=== PATIENT | female | born 1970 | race Caucasian/White ===

== ENCOUNTER 2017-01-30 04:13 | Inpatient (IN) | payer OTHER ==
[~2017-01-30] VITALS: Ht 165.1 cm; Wt 55.8 kg
[~2017-01-30 04:13] MED LIST: BACTRIM DS 8001 TAB PO; EC NAPROSYN500 MG PO; IBUPROFEN600 M1 PO; PERCOCET 5-3251 EACH PO; PROAIR HFA0.09 MG/Ac INH; TRIAMCINOL0.1 %/453 TOP; TYLENOL #31 TAB PO
--- NOTE | 2017-01-30 04:32 | NUR ---
PER PT JOINTS PAINFUL AND WHOLE BODY PAIN, PT REPORTS HX OF BLOOD INFECTION IN APR 2016, HAD PICC LINE BUT TOOK IT OUT EARLY
--- NOTE | 2017-01-30 04:49 | NUR ---
AT BEDSIDE FOR PT EVALUATION
--- NOTE | 2017-01-30 05:16 | NUR ---
IV EST #20 IN RAC. BLOOD OBTAINED AND SENT TO LAB -[facility], 1ST SET OF CX. PT MEDICATED WITH 1MG DILAUDID AND NS INFUSING PER EMAR
[2017-01-30 05:18] LABS: ABSOLUTE BASOPHIL COUNT 0 /CUMM (0.0-0.2); ABSOLUTE EOSINOPHIL COUNT 0.2 /CUMM (0.0-0.7); ABSOLUTE GRANULOCYTE CT 9.4 /CUMM (1.4-6.5); ABSOLUTE LYMPH COUNT 1.6 /CUMM (1.2-3.4); ABSOLUTE MONOCYTE COUNT 0.5 /CUMM (0.10-0.60); BASOPHIL % 0.2 % (0.0-2.0); EOSINOPHIL % 1.5 % (0-5); GRANULOCYTE % 80.3 % (42.2-75.2); HEMATOCRIT 40.2 % (37-47); MEAN CORPUSCULAR HGB 27.8 PG (27.0-31.0); MEAN CORPUSCULAR HGB CONC 32.7 G/DL (33.0-37.0); MEAN PLATELET VOLUME 7.4 FL (7.4-10.4); PLATELET COUNT 355 /CUMM (130-400); RBC DISTRIBUTION WIDTH 13.9 % (11.5-14.5); RED BLOOD CELL CT 4.73 /CUMM (4.20-5.40); WHITE BLOOD CELL COUNT 11.8 /CUMM (4.8-10.8)
--- NOTE | 2017-01-30 05:25 | NUR ---
SECOND SET OF CX OBTAINED BY [facility]
--- NOTE | 2017-01-30 05:50 | NUR ---
PT MEDICATED WITH 30MG TORADOL PER EMAR
--- NOTE | 2017-01-30 06:01 | ED GENERAL ADULT ---
See Addendum History of Present Illness General Chief Complaint: General Adult Stated Complaint: "WHOLE BODY PAIN I HAVE ULCERS ALLOVER" HX OF SAME Source: patient, family, old records Exam Limitations: no limitations Vital Signs & Intake/Output Vital Signs & Intake/Output Vital Signs Date Time Temp Pulse Resp B/P B/P Pulse O2 O2 Flow FiO2 Mean Ox Delivery Rate 01/30 0433 96.5 72 22 180/108 98 Room Air Allergies Coded Allergies: aspirin (Intermediate, SWELLING 05/26/16) Reconcile Medications Albuterol Sulfate (Proair Hfa) 0.09 MG/Actuation PRESLEY 1 PUFF INH 4 TIMES/DAY PRN DYSPNEA Ibuprofen 600 MG TABLET 1 TAB PO Q6PRN PRN pain with food Naproxen (EC-Naprosyn) 500 MG TABLET.DR 1 TAB PO BID PRN PAIN (Reported) Oxycodone HCl/Acetaminophen (Percocet 5-325 MG Tablet) 1 EACH TABLET 1-2 TAB PO Q6-PRN PRN severe pain Sulfamethoxazole/Trimethopri (Bactrim Ds 800 MG-160 MG) 1 TAB TAB 1 TAB PO BID CELLULITIS Triage Note: PER PT JOINTS PAINFUL AND WHOLE BODY PAIN, PT REPORTS HX OF BLOOD INFECTION IN APR 2016, HAD PICC LINE BUT TOOK IT OUT EARLY Triage Nurses Notes Reviewed? yes Onset: Last week Duration: week(s):, constant, continues in ED, getting worse Timing: recent history Severity: severe Modifying Factors: Improves With: immobilization. Worsens With: movement. LMP (ages 10-50): unknown : No Patient currently breastfeeds: No HPI: Patient complains of painful generalized skin ulcers joint pain myalgia with a history of pyoderma gangrenosa. She reports the worst pain is at the right knee and left elbow bilateral medial malleoli. These issues have been going on for over a year. She has been admitted to [facility] and seen at surgery, dermatology, internal medicine clinics at [facility]. She denies fever chills chest pain cough shortness of breath headache dysuria rash bleeding . Past History Travel History Traveled to [place] past 21 day No Medical History Any Pertinent Medical History? 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 No Review of Systems Review of Systems Constitutional: Reports: see HPI, malaise. EENTM: Reports: no symptoms. Respiratory: Reports: no symptoms. Cardiovascular: Reports: no symptoms. GI: Reports: no symptoms. Genitourinary: Reports: no symptoms. Musculoskeletal: Reports: see HPI, joint pain, joint swelling, muscle pain. Skin: Reports: see HPI, lesions. Neurological/Psychological: Reports: no symptoms. Hematologic/Endocrine: Reports: no symptoms. Immunologic/Allergic: Reports: no symptoms. All Other Systems: Reviewed and Negative Physical Exam Physical Exam General Appearance: well developed/nourished, alert, awake, anxious, severe distress Head: atraumatic, normal appearance Eyes: Bilateral: normal appearance, PERRL, EOMI. Ears, Nose, Throat: normal pharynx, normal ENT inspection Neck: normal inspection, supple, full range of motion, no midline tenderness Respiratory: normal breath sounds, chest non-tender, no respiratory distress, quiet respiration, lungs clear Cardiovascular: regular rate/rhythm, normal peripheral pulses, norml femoral pulses equa Peripheral Pulses: 4+ carotid (R), 4+ carotid (L) Gastrointestinal: normal bowel sounds, soft, non-tender, no organomegaly Back: normal inspection, normal range of motion Extremities: normal capillary refill, limited range of motion, swelling (right knee, left elbow) Neurologic/Psych: no motor/sensory deficits, awake, alert, oriented x 3, 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 Skin: rash, generalized bullae, papules tender to touch left medial malleolus with necrotic looking 3 cm2 lesion Lymphatic: no anterior cervical luis Core Measures ACS in differential dx? No CVA/TIA Diagnosis: No Severe Sepsis Present: No Septic Shock Present: No Progress Differential Diagnoses I considered the following diagnoses in my evaluation of the patient: cellulitis pyoderma gangrenosum bacteremia Plan of Care: Orders Procedure Date/time Status LACTIC ACID 01/30 0753 Active C-REACTIVE PROTEIN 01/30 0508 Complete BLOOD CULTURE 01/30 453 Active LACTIC ACID 06/18 0453 Complete HIGH SENSITIVITY CRP 01/30 453 Complete WESTERGREN SED RATE 01/30 453 Active COMPREHENSIVE METABOLIC PANEL 01/30 453 Complete CBC WITHOUT DIFFERENTIAL 01/30 453 Active Current Medications Sig/Diomedes Start time Last Medication Dose Stop Time Status Admin Doxycycline Hyclate 100 MG ONCE ONE 01/30 0700 AC (Vibramycin) 01/30 0805 Sodium Chloride 100 ML (Normal Saline 0.9%) Laboratory Tests 01/30/17 0508: Anion Gap 12, Estimated GFR > 60, BUN/Creatinine Ratio 17.1, Glucose 105 H, Lactic Acid 1.2, Calcium 9.5, Total Bilirubin 0.4, AST 24, ALT 34, Alkaline Phosphatase 135 H, C-Reactive Prot, Quant 2.5 H, C-React Prot High Sens > 15.0 H, Total Protein 7.6, Albumin 4.2, Globulin 3.4, Albumin/Globulin Ratio 1.2, CBC w Diff NO MAN DIFF REQ, RBC 4.73, MCV 85.0, MCH 27.8, RDW 13.9, MPV 7.4, Gran % 80.3 H, Lymphocytes % 13.7 L, Monocytes % 4.3, Eosinophils % 1.5, Basophils % 0.2, Absolute Granulocytes 9.4 H, Absolute Lymphocytes 1.6, Absolute Monocytes 0.5, Absolute Eosinophils 0.2, Absolute Basophils 0, PUBS MCHC 32.7 L, ESR Westergren Pending Microbiology 01/30 05 BLOOD: Blood Culture - RECD 01/31 508 BLOOD: Blood Culture - RECD Initial ED EKG: none Hand-Off Endorsed To: AARON ROJAS,NONI Burkett Endorsed Time: 703 Pending: other (ESR, pain level) Departure Departure Disposition: STILL A PATIENT Condition: Stable Clinical Impression Primary Impression: Pyoderma gangrenosum Referrals: PATIENT HAS NO PRIMARY CARE DR (PCP/Family) Departure Forms: Customer Survey General Discharge Information Critical Care Note Critical Care Note Critical Care Time: non-applicable
--- NOTE | 2017-01-30 06:46 | NUR ---
PER PT PAIN IS SITLL PRESENT HOWEVER "TOLERABLE". PT REQUESTING BLANKET, GIVEN AND LIGHTS DIMMED FOR COMFORT.
--- NOTE | 2017-01-30 06:48 | NUR ---
AT BEDSIDE FOR DISCUSSION ON PT POC
--- NOTE | 2017-01-30 07:51 | NUR ---
ASSUMED CARE OF PT AT THIS TIME PT AWAKE, ALERT AND CONVERSTANT WITHOUT COMPLAINTS PT HAS OPEN WOUND TO L ANKLE WITH SURROUNDING REDNESS. PT STATES SHE GETS "ULCERS" AND "THAT ONE JUST GOT AWAY FROM ME". ALL EXPOSED SKIN NOTED TO HAVE SMALL OPEN AREAS WITH BAND AIDS. PT REPORTS RECENT PICC LINE WITH IV ANTIBIOTICS (APR). ATTEMPTED TO MEDICATE PT THROUGH EXISTING IV AND NOTED SMALL AREA OF PUFFINESS ABOVE SITE. PT DENIES PAIN. IV D/ADAM. NEW IV PLACED TO LAC. MEDICATED WITH SOLUMEDROL, DILAUDID, ZOFRAN PER OCT. DOXYCYCLINE INFUSING PER OCT. TOAST ORDERED PER REQUEST
--- NOTE | 2017-01-30 08:27 | NUR ---
TOAST AND JUICE GIVEN PER PT REQUEST OK WITH MD WALKER
--- NOTE | 2017-01-30 08:47 | NUR ---
DOXYCYCLINE COMPLETED PT TOLERATED TOAST AND JUICE DR WALKER WILL BE INTO DISCUSS RESULTS/POC. PT INFORMED OF AND AGREEABLE TO SAME
--- NOTE | 2017-01-30 10:26 | NUR ---
INFORMED WAITING PROVIDED RE MD WALKER REVIEWING POC WITH PT
--- NOTE | 2017-01-30 10:37 | NUR ---
TAKEN TO RADIOLOGY VIA STRETCHER
--- NOTE | 2017-01-30 10:59 | RADIOLOGY REPORT ---
EXAMINATION: XR FOOT, LEFT CLINICAL INFORMATION: Soft tissue wound left foot. Concern for osteomyelitis. COMPARISON: None TECHNIQUE: AP, lateral, and oblique views of the left foot. FINDINGS: A large soft tissue defect is noted over the dorsal and medial aspect of the left foot. No underlying bony changes are seen to suggest osteomyelitis. No other abnormality. IMPRESSION: Large soft tissue wound. No bony abnormality.
--- NOTE | 2017-01-30 11:46 | NUR ---
DR WALKER AND CASE MANAGEMENT AT THE BEDSIDE
--- NOTE | 2017-01-30 12:04 | NUR ---
C/O INCREASED PAIN. MED WITH ADDITIONAL DILAUDID PER OCT. TOLERATED WELL. PT AWARE SHE IS WAITING ON DISPOSITION TODAY. DENIES NEEDING ANYTHING AT THIS TIME LUNCH ORDERED - OK WITH MD WALKER
--- NOTE | 2017-01-30 13:06 | NUR ---
PT REMAINS WITHOUT COMPLAINTS. DENIES CURRENT NEEDS AWAITING CASE MANAGEMENT / DISPOSITION - POSSIBLE ADMISSION FOR IV ANTIBIOTICS.
--- NOTE | 2017-01-30 13:12 | NUR ---
CASE MANAGEMENT AT THE BEDSIDE
--- NOTE | 2017-01-30 14:26 | NUR ---
HOUSE STAFF INTO EVAL
--- NOTE | 2017-01-30 14:40 | NUR ---
PT CONTINUES TO OFFER NO COMPLAINTS. HOUSE STAFF REMAINS AT BEDSIDE FOR EVAL AWAITING ADMISSION/TRANSFER UPSTAIRS
--- NOTE | 2017-01-30 14:41 | NUR ---
[facility] [id number]
--- NOTE | 2017-01-30 14:50 | History & Physical ---
ALEIDA ROJAS,[facility] 01/30/17 3380: General Information and HPI MD Statement: I have seen and personally examined NURY LLAMAS and documented this H&P. The patient is a 46 year old F who presented with a patient stated chief complaint of [skin wound/ulcer]. Source of Information: patient Exam Limitations: no limitations History of Present Illness: Ms. Llamas is 46 year old female current smoker. Patient presented to ED with chief complaint of skin wounds/ulcers. She reported that last week started to have small wounds in her bilateral feet that ulcerated, multiple wounds in her upper extremity, small aphthous ulcer at the left tongue tip, no other mucous membrane lesions including genital area. Patient reported history of similar skin disorder that was diagnosed in 2014 at [facility] and was started on steroids. Last April patient had some sort of bacteremia for which she received antibiotic through PICC line. Patient denied any fever, chills. Denied any skin color changes, abdominal pain , nausea vomiting, change in color of urine or stool. Denied any muscle pain or joint pain however reported left elbow cyst. Patient denied any chest pain, cough, shortness of breath, headache. 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 Exam & Diagnostic Data Last 24 Hrs of Vital Signs/I&O Vital Signs Date Time Temp Pulse Resp B/P B/P Pulse O2 O2 Flow FiO2 Mean Ox Delivery Rate 01/30 1440 97.4 74 18 169/81 97 Room Air 01/30 1306 96.3 89 18 173/95 94 Room Air 01/30 1034 96.6 69 18 169/94 96 Room Air 01/30 0433 96.5 72 22 180/108 98 Room Air Intake & Output 01/30 1600 01/30 0800 01/30 0000 Intake Total 100 1000 Output Total Balance 100 1000 Intake, IV 100 1000 Physical Exam General Appearance Alert, Oriented X3, Cooperative, No Acute Distress Skin multiple open wounds on bilateral upper extremities 2 ulcers 5 x 5 cm on the medial surface of bilateral feet multiple small open wounds on bilateral lower extremity small open wound preumbilical Skin Temp/Moisture Exam: Warm/Dry HEENT Atraumatic, PERRLA, EOMI, Mucous Membr. moist/pink, aphthous ulcer on the left edge of the tongue Neck Supple, No JVD Lymphatic no cervical or axillary lymphadenopathy Cardiovascular Regular Rate, Normal S1, Normal S2, No Murmurs Lungs Clear to Auscultation, Normal Air Movement Abdomen Normal Bowel Sounds, Soft, No Tenderness, No Hepatospenomegaly, No Masses Neurological Normal Gait, Normal Speech, Strength at 5/5 X4 Ext, Normal Tone, Sensation Intact, Cranial Nerves 3-12 NL, Reflexes 2+ Extremities No Clubbing, No Cyanosis, No Edema, Normal Pulses, No Tenderness/ Swelling Assessment/Plan Assessment: Ms. Llamas is 46 year old female post medical history significant for septic arthritis who presented with history of pyoderma gangrenosu. On admission Vital signs 96.5, pulse 22, heart rate 98, blood pressure 180/108 wbc 11.8, H&H 13.1/40.2, platelet 355 Sodium 142, potassium 3.7, BUN/creatinine 12/0.7, glucose 105 Problem list #Pyoderma gangrenosum Plan -Admit to general med floor -Mupirocin typically for wound care -IV Solu-Medrol 40 mg daily -Pain medication -Obtain these are and C-reactive protein -Obtain foot MRI to rule out osteomyelitis -Wand consultation -Diet regular -Code full As Ranked By This Provider Problem List: 1. Pyoderma gangrenosum Core Measures/Miscellaneous Acute Coronary Syndrome ACS Diagnosis: No Cerebrovascular Accident CVA/TIA Diagnosis: No Congestive Heart Failure CHF Diagnosis: No VTE (View Protocol) VTE Risk Factors: Age > 40 No Mech VTE prophylaxis d/t: Dermatitis No VTE Pharm Prophylaxis d/t: No contraindications VTE Diagnosis: No VTE Type: NONE VTE Confirmed by (Test): NONE Sepsis (View Protocol) Severe Sepsis Present: No Septic Shock Septic Shock Present: No Miscellaneous Documentation Attending Case Discussed With: OSCAR MCKEON M.D Primary Care Physician: PATIENT HAS NO PRIMARY CARE DR Patient sees these Specialists none Level of Patient Care: General Medicine MIKE ROJAS,JOSE AAnnabelle 01/30/17 1840: Attending MD Review Statement Attending Statement Attending MD Statement: examined this patient, discuss w/resident/PA/PERINATAL COORDINATOR, agreed w/resident/PA/PERINATAL COORDINATOR, reviewed EMR data (avail), discussed with nursing, amended to note Attending Assessment/Plan: Patient is a 46-year-old female with history of septic arthritis right knee. She reports that last year she was discharged with a PICC line to complete several weeks of antibiotic therapy. She reports barely complete in about 4 weeks of therapy before antibiotic therapy were discontinued for reasons not entirely clear and the PICC line was removed in May 2016. She also carries a history of pyoderma gangrenosum with multiple lesions appearing on and off. She reports that a recent time the lesions have become more extensive. She has a large ulcer on her left foot and decided to come to the emergency room for evaluation. She was found afebrile hemodynamically stable. She was noted to have extensive lesions. X-ray of the left foot showed no bony abnormality. Decision was made to keep the patient in the hospital to receive IV steroid therapy and further evaluation by the office specialist. Is no evidence of an infection in her knees. She has extensive small pyoderma gangrenosum lesions all over her body and large lesion on her foot. Distal pulses are palpable. She has no cough tenderness or swelling. Recommendations: -Administer systemic steroid therapy intravenously. -Apply mupirocin topically. -Obtain wound consult and dermatology consultation. -Check ESR -DVT prophylaxis with heparin subcutaneous. -Please refer patient to a primary care provider upon discharge. STEVE LICONA 01/30/17 1907: Resident Review Statement Resident Statement: examined this patient, discussed with international account manager, agreed with international account manager, reviewed EMR data (avail) Other Findings: This is a 46-year-old lady with past medical history significant for pyoderma gangrenosum, , septic arthritis of right knee who presents to the hospital concern of worsening of her pyoderma gangrenosum lesions. Per patient, she was diagnosed with pyoderma gangrenosum 3 years ago, she follows at [facility], she was worked up for rheumatic arthritis which was negative and was told that her pyoderma gangrenosum could be secondary to cocaine use. Patient sniffs cocaine almost every week. Per patient, she was started on IV antibiotics via PICC line April the last year because of bacteremia, and was supposed to complete antibiotic therapy for a few months. Patient mentions that PICC line was removed in May 2016, reasons not entirely clear. Lesions usually develop as a small ulcer and gradually increase in size and become necrotic. She has ulcers on her lower abdomen, hands, legs. Largest one approximately 7 cm on her left ankle started last week. Patient is afebrile and hemodynamically stable. Labs revealed leukocytosis to 11.8, granulocytosis, also elevated CRP, ESR and alkaline phosphatase. In the ED, she received IV steroids and IV antibiotics. Patient denies SI, HI. Problem list: #Pyoderma gangrenosum #Cocaine abuse Plan: * Vital signs per protocol * Will start the patient on IV methylprednisolone 40 mg daily * Topical mupirocin * Wound consult * Dermatology consult * Foot x-rays negative for osteomyelitis, will order MRI given elevated ESR. * Social consult for cocaine abuse * DVT prophylaxis with subcutaneous heparin * Patient is full code
--- NOTE | 2017-01-30 14:56 | NUR ---
ATTEMPTED TO GIVE REPORT - NURSE COMING IN AT 1500
--- NOTE | 2017-01-30 15:01 | NUR ---
REPORT GIVEN TO SENG CRAWFORD BOOKED OK TO SEND PT AT THIS TIME PER RECEIVING REPORT
[2017-01-30 15:28] VITALS: BP 150/76
--- NOTE | 2017-01-30 19:43 | NUR ---
PT ARRIVED TO FLOOR AT 1535 VIA STRETCHER FROM ER. REPORT TAKEN FROM NY MITCHELL. PT C/O 05/24 PAIN GENERALIZED TO BODY AND L ANKLE. MANY OPEN AREAS PRESENT ON LIMBS, COVERED WITH BANDAIDS, SOME OPEN AND BLEEDING, CLEANED AND RE-DRESSED WITH BANDAIDS. L ANKLE OPEN AREA 3.5 CM X 5 CM ON MEDIAL ASPECT, DRESSED WITH NONADHERENT GAUZE AND KERLEX. ORIENTED TO ROOM AND CALL WALKER. SAFETY ENSURED AT THIS TIME.
[2017-01-30 22:12] VITALS: BP 142/70
[2017-01-31 06:30] VITALS: BP 152/96
--- NOTE | 2017-01-31 07:32 | PN- Housestaff ---
See Addendum Subjective Follow-up For: Observing patient for Pyoderma Gangrenosum Complaints: painful wounds Subjective: I followed up the patient today. She was resting in bed, somewhat disheartened about here condition but denied any help. Her vitals have remained stable overnight, no overnight issues. Later during the day, patient was in a better mood, and was looking forward to the dermatologic consultation. Review of Systems Constitutional: Reports: no symptoms. Objective Last 24 Hrs of Vital Signs/I&O Vital Signs Date Time Temp Pulse Resp B/P B/P Pulse O2 O2 Flow FiO2 Mean Ox Delivery Rate 01/31 1445 97.9 77 20 140/80 93 01/31 0630 98.9 78 18 152/96 95 Room Air 01/30 2212 98.9 95 20 142/70 94 Room Air 01/30 1857 Room Air Intake & Output 01/31 1600 01/31 0800 01/31 0000 Intake Total 720 250 350 Output Total Balance 720 250 350 Intake, Oral 720 250 350 Patient 55.792 kg 56.245 kg Weight Physical Exam General Appearance: Alert, Oriented X3, Cooperative, No Acute Distress Other Physical Findings: Skin two ulcers approx 5 x 5 cm on the medial surface of bilateral feet, lesions in various stages of healing: multiple open wounds on bilateral upper extremities, multiple small open wounds on bilateral lower extremity, small open wound in periumbilical area Skin Temp/Moisture Exam: Warm/Dry HEENT Atraumatic, PERRLA, EOMI, Mucous Membr. moist/pink, aphthous ulcer on the left edge of the tongue Neck Supple, No JVD Lymphatic no cervical or axillary lymphadenopathy Cardiovascular Regular Rate, Normal S1, Normal S2, No Murmurs Lungs Clear to Auscultation, Normal Air Movement Abdomen Normal Bowel Sounds, Soft, No Tenderness, No Hepatospenomegaly, No Masses Neurological Normal Gait, Normal Speech, Strength at 5/5 X4 Ext, Normal Tone, Sensation Intact, Cranial Nerves 3-12 NL, Reflexes 2+ Extremities No Clubbing, No Cyanosis, No Edema, Normal Pulses, No Tenderness/ Swelling, skin changes as described above. Current Medications: Current Medications Sig/Diomedes Start time Last Medication Dose Route Stop Time Status Admin Acetaminophen 325 MG Q6P PRN 01/30 1445 AC PO Heparin Sodium 5,000 UNIT Q8 01/30 2200 AC 01/31 (Porcine) SC 1507 Hydromorphone HCl 1 MG Q8P PRN 01/30 1500 AC 01/31 IV 1613 Methylprednisolone 40 MG DAILY 01/31 1000 AC 01/31 IV 0939 Mupirocin 1 ALEXYS TID 01/30 2200 01/31 TOP 1508 Oxycodone HCl 5 MG Q6 PRN 01/30 1900 01/31 PO 0216 Sodium Hypochlorite 1 ALEXYS DAILY 01/31 1134 TOP Last 24 Hrs of Lab/Jeramy Results Last 24 Hrs of Labs/Mics: Laboratory Tests 01/30/171853: Urine Color YEL, Urine Clarity CLEAR, Urine pH 6.5, Ur Specific Ullin 1.020, Urine Protein NEG, Urine Ketones NEG, Urine Nitrite NEG, Urine Bilirubin NEG, Urine Urobilinogen 0.2, Ur Leukocyte Esterase NEG, Ur Microscopic SEDIMENT EXAMINED, Urine RBC 15-25 H, Urine WBC 1-3 H, Ur Epithelial Cells FEW, Urine Bacteria RARE H, Urine Hemoglobin TRACE-INTACT, Urine Glucose 250 H Microbiology 01/30 1854 URINE ROUT: Urine Culture - RES Assessment/Plan Assessment: 46-year-old female with past medical history only significant for right knee septic arthritis, and chronic skin lesions is here for bilateral leg ulcers. She is currently being managed in the general medical floor for the following issues: # Pyoderma gangrenosum Diagnosis was presented by the patient, who has multiple wounds all over the body. * Dermatology consultation has been requested. Awaiting. * Continue IV steroids for now * Continue IV Lasix for now * Continue 2% mupirocin ointment over the lesions for now * Patient follows up with Dr. Willis who is a experimental electronics developer and has been requested for consult. Awaiting. * MRI obtained today ruled out osteomyelitis. #Diet: Regular diet #DVT ppx: SQ Heparin #Code status: Full code Problem List: 1. Pyoderma gangrenosum 2. History of septic arthritis Pain Ratin Pain Location: feet Pain Goal: Pain 4 or less Pain Plan: prn Tomorrow's Labs & Rationales: -
--- NOTE | 2017-01-31 08:30 | Cons- Wound Care ---
General Information and HPI Consulting Request Date of Consult: 01/31/17 Requested By: OSCAR MCKEON M.D Reason for Consult: Multiple wounds present on admission History of Present Illness: Patient is a 46-year-old poor historian admitted with multiple diffuse skin lesions which are painful and have been difficult to address by herself at home. She states having been evaluated for these at [facility] in the past for which she was treated with steroids but is unaware of a specific diagnosis she denies ever having had a skin biopsy. These have returned several weeks ago and have developed into especially painful bleeding lesions over both lower extremities. She was admitted for pain control and was empirically started on IV steroids for presumptive diagnosis of pyoderma gangrenosum Allergies/Medications Allergies: Coded Allergies: aspirin (Intermediate, SWELLING 05/26/16) Home Med List: No Known Home Medications Review of Systems Review of Systems: Patient denies history of peripheral vascular disease Past History Travel History Traveled to [facility] past 21 day No Medical History Neurological: NONE EENT: NONE Cardiovascular: NONE Respiratory: NONE Gastrointestinal: GERD Hepatic: NONE Renal: NONE Musculoskeletal: unknown joint disease, OSTEOMYELITIS Psychiatric: NONE Endocrine: NONE Blood Disorders: NONE Cancer(s): 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 Home Smoking Status: Current Everyday Smoker Exam & Diagnostic Data Vital Signs and I&O Vital Signs Result Date Time Pulse Ox 95 01/31 0630 B/P 152/96 01/31 0630 O2 Delivery Room Air 01/31 0630 Temp 98.9 01/31 0630 Pulse 78 01/31 0630 Resp 18 01/31 0630 Intake & Output 01/31 0000 01/30 1600 01/30 0800 Intake Total 841 315 4057 Output Total Balance 293 851 2046 Intake, IV 100 1000 Intake, Oral 350 Patient 124 lb 124 lb Weight There are 2 numerous to count necrotic ulcers over her hands and arms legs especially over both feet. These have dry necrotic eschar. Distal pulses are able to be palpated. Assessment/Plan Impression/Plan: 46-year-old with recurrent dermal lesions thought secondary to pyoderma gangrenosum though she denies ever having had skin biopsy. Presently patient has multiple painful wounds with necrotic eschar. Recommend initial dressing as quarter strength Dakin moistened gauze in hopes of dealing with the odor and softening eschar. Formal dermatologic evaluation is necessary for specific diagnosis and treatment recommendations. If slough persists use of enzymatic debridement with Santyl and Xeroform can be pursued after dermatologic evaluation Consult Acknowledgment - Thank you for your consult request.
--- NOTE | 2017-01-31 11:39 | NUR ---
11:15- WOUND CARE CLARIFIED WITH DR. EVA GOMEZ. / STRENGTH DAKINS TO OPEN LESIONS WITH ESCHAR TO BLE. REMAINING OPEN LESIONS WITH BACTROBAN F/B [facility] DAILY. FITNESS CENTRE MANAGER TO CONSULT TODAY. WOUND CARE ORDERS SUBJECT TO CHANGE DEPENDING ON DERMATOLOGY RECOMMENDATIONS.
--- NOTE | 2017-01-31 12:11 | MRI REPORT ---
EXAMINATION: MR ANKLE WITHOUT CONTRAST, LEFT CLINICAL INFORMATION: Left medial malleolus ulcer. Presumptive diagnosis: Osteomyelitis. Patient reports pyoderma gangrenosum with ulcers over entire body, severe pain. COMPARISON: Left foot 01/30/2017. TECHNIQUE: Multiplanar MR imaging was performed through the right ankle on a high-field scanner without intravenous contrast. There is some motion artifact on multiple sequences. The patient was unable to tolerate additional repeats due to severe pain. FINDINGS: ACHILLES TENDON: There is moderate thickening and patchy signal abnormality in the distal Achilles tendon. There is also a superimposed partial tear extending along the deep margin to the insertion site, measuring 27 mm craniocaudal and 14 mm transverse. There is mild bone marrow edema in the adjacent posterior calcaneus. PLANTAR FASCIA: Intact. OTHER ANKLE TENDONS: Intact. LIGAMENTS: Intact. ARTICULAR CARTILAGE/BONE: There are no degenerative arthritic changes. There are no suspicious regions of bone marrow edema or bony destruction to suggest osteomyelitis, with specific attention to the medial malleolus. JOINT FLUID/BURSA/SOFT TISSUES: There is skin irregularity and edema along the medial aspect of the ankle. There is diffuse subcutaneous edema, most prominent laterally. TARSAL SINUS/TARSAL TUNNEL: Within normal limits. IMPRESSION: 1. Moderate distal Achilles tendinosis with partial insertional tear. 2. Medial skin irregularity and edema. Diffuse subcutaneous edema, most prominent laterally. 3. No MRI evidence of osteomyelitis.
--- NOTE | 2017-01-31 12:15 | NUR ---
Pt referred to sw for cocaine abuse by Md Nery. Record reviewed unclear use. sw to pt's room. Pt not in room. RN not available. sw to return.
--- NOTE | 2017-01-31 13:21 | PN- Att Addend ---
Attending Addendum Attending Brief Note Patient seen and examined, feeling almost the same. Complains of pain in her bones. She has a wound at multiple sites including bilateral ankle, bilateral hands. The one on the feet are problematic. Vital Signs Date Time Temp Pulse Resp B/P B/P Pulse O2 O2 Flow FiO2 Mean Ox Delivery Rate 01/31 0630 98.9 78 18 152/96 95 Room Air 01/30 2212 98.9 95 20 142/70 94 Room Air 01/30 1857 Room Air 01/30 1528 98.4 76 18 150/76 96 Room Air 01/30 1440 97.4 74 18 169/81 97 Room Air on exam; aox3, nad. cv; s1,s2, rrr resp; clear abd; soft, nt, bs+ ext; no edema. skin; muiltiple ulcerations on b/l hands, feet with deep wounds on feet/ankle. Laboratory Tests 01/30 1854 Urines Urine Color (YEL,AMB,STR) YEL Urine Clarity (CLEAR) CLEAR Urine pH (5.0 - 8.0) 6.5 Ur Specific Ono (1.001 - 1.035) 1.020 Urine Protein (NEG,<30 MG/DL) NEG Urine Ketones (NEG) NEG Urine Nitrite (NEG) NEG Urine Bilirubin (NEG) NEG Urine Urobilinogen (0.1 - 1.0 EU/dl) 0.2 Ur Leukocyte Esterase (NEG) NEG Ur Microscopic SEDIMENT EXAMINED Urine RBC (0 - 5 /HPF) 15-25 H Urine WBC (0 - 2 /HPF) 1-3 H Ur Epithelial Cells (NONE,FEW) FEW Urine Bacteria (NEG/NONE) RARE H Urine Hemoglobin (NEG) TRACE-INTACT Urine Glucose (N MG/DL) 250 H A/P; 46-year-old female with questionable history off pyoderma gangrenosum although it was never biopsy-proven, history of septic arthritis last year who is admitted with nonhealing wound on bilateral feet. There is a high suspicion for pyoderma gangrenosum in this patient and IV steroids were started. She is complaining of pain. Currently getting Dilaudid and oxycodone. Seen by wound care. Dermatology consult is requested. MRI of the left ankle done which shows no osteitis but it does show Moderate distal Achilles tendinosis with partial insertional tear. This warrants orthopedic consult. DVT px; Hep sq.
[2017-01-31 14:45] VITALS: BP 140/80
--- NOTE | 2017-01-31 15:00 | MRI REPORT ---
EXAMINATION: MR ANKLE WITHOUT CONTRAST, RIGHT CLINICAL INFORMATION: Medial malleoli ulcer. Pyoderma gangrenosum. COMPARISON: Left ankle MRI done earlier the same day. TECHNIQUE: Multiplanar MR imaging was performed through the right ankle on a high-field scanner without intravenous contrast. FINDINGS: BONE AND ARTICULAR CARTILAGE: Normal marrow signal. No osseous erosion, marrow edema, or evidence of osteomyelitis. Cartilage is well preserved. No talar osteochondral lesions. ACHILLES TENDON: There is distal Achilles tendinosis with anterior surface partial tearing involving the distal 2.3 cm of the tendon. This measures approximately 1.0 cm in ML dimension. There is no full-thickness tendon defect. OTHER TENDONS: Intact. LIGAMENTS: There is attenuation of the anterior talofibular ligament, consistent with a remote injury. JOINT FLUID AND SOFT TISSUES: There is irregularity of the medial soft tissues, consistent with the reported history of an ulcer. There is mild medial and lateral subcutaneous edema. There is no abnormal soft tissue fluid collection or mass. There is no significant joint effusion. PLANTAR FASCIA: Normal. TARSAL TUNNEL: Normal. IMPRESSION: 1. Distal Achilles tendinosis with anterior surface partial tearing. No full-thickness tendon defect. 2. Medial malleolar ulcer with associated subcutaneous edema. No soft tissue fluid collection. 3. No evidence of osteomyelitis. Poli Robertson M.D. Fellow, Musculoskeletal Radiology I personally reviewed the images and, if necessary, I edited the report. I agree with report as now presented. Zeb Ochoa M.D.
[2017-01-31 22:01] VITALS: BP 142/78
[2017-02-01 07:01] VITALS: BP 164/90
--- NOTE | 2017-02-01 07:12 | PN- Housestaff ---
PATRICIA ROJAS,EVA 02/01/17 0712: Subjective Follow-up For: Pyoderma Gangrenosum; Achilles tendon partial tear. Complaints: no complaints Subjective: I followed up and examined the patient today. She is resting comfortably in bed. She seemed to be in a very good mood, mentioned that she changed her dressing by herself as she is used to doing it at home. Her vitals overnight have been stable, no overnight events. Dr. Almeida bridge design engineer saw her yesterday evening. She does complain of pain when she tries to walk. Review of Systems Constitutional: Reports: no symptoms. Objective Last 24 Hrs of Vital Signs/I&O Vital Signs Date Time Temp Pulse Resp B/P B/P Pulse O2 O2 Flow FiO2 Mean Ox Delivery Rate 02/01 1324 88 140/84 02/01 0701 97.9 74 16 164/90 96 Room Air 01/31 2201 98.5 84 18 142/78 96 01/31 1445 97.9 77 20 140/80 93 Intake & Output 02/01 1600 02/01 0800 02/01 0000 Intake Total 50 260 Output Total Balance 50 260 Intake, IV 0 20 Intake, Oral 50 240 Number 0 Bowel Movements Physical Exam General Appearance: Alert, Oriented X3, Cooperative, No Acute Distress Other Physical Findings: Skin two ulcers approx 5 x 5 cm on the medial surface of bilateral feet, lesions in various stages of healing: multiple open wounds on bilateral upper extremities, multiple small open wounds on bilateral lower extremity, small open wound in periumbilical area HEENT Atraumatic, PERRLA, EOMI, Mucous Membr. moist/pink, aphthous ulcer on the left edge of the tongue Neck Supple, No JVD Lymphatic no cervical or axillary lymphadenopathy Cardiovascular Regular Rate, Normal S1, Normal S2, No Murmurs Lungs Clear to Auscultation, Normal Air Movement Abdomen Normal Bowel Sounds, Soft, No Tenderness, No Hepatospenomegaly, No Masses Neurological Normal Gait, grossly intact Extremities No Clubbing, No Cyanosis, No Edema, Normal Pulses, No Tenderness/ Swelling, skin changes as described above. Current Medications: Current Medications Sig/Diomedes Start time Last Medication Dose Route Stop Time Status Admin Acetaminophen 325 MG Q6P PRN 01/30 1445 AC PO Amlodipine Besylate 2.5 MG DAILY 02/01 1157 AC 02/01 PO 1324 Clobetasol Propionate 1 ALEXYS BID 02/01 1000 AC 02/01 TOP 0947 Heparin Sodium 5,000 UNIT Q8 01/30 2200 AC 02/01 (Porcine) SC 1324 Hydromorphone HCl 1 MG Q8P PRN 01/30 1500 AC 02/01 IV 0835 Methylprednisolone 40 MG DAILY 01/31 1000 DC 01/31 IV 0939 Mupirocin 1 ALEXYS BID 02/01 1000 AC 02/01 TOP 0947 Mupirocin 1 ALEXYS TID 01/30 2200 AC 02/01 TOP 0947 Oxycodone HCl 5 MG Q6 PRN 01/30 1900 AC 02/01 PO 1155 Prednisone 40 MG BID 02/01 1000 AC 02/01 PO 02/14 2300 0946 Sodium Hypochlorite 1 ALEXYS DAILY 01/31 1134 AC 01/31 TOP 1813 Assessment/Plan Assessment: 46-year-old female with past medical history only significant for right knee septic arthritis, and chronic skin lesions is here for bilateral leg ulcers. She is currently being managed in the general medical floor for the following issues: # Pyoderma gangrenosum Diagnosis was presented by the patient, who has multiple wounds all over the body. * Dermatology consultation appreciated. * Continue PO steroids (was IV yesterday) * Continue IV Lasix for now * Continue 2% mupirocin and clobetasol ointment over the lesions * Patient follows up with Dr. Willis who is a planning and analysis manager and has been requested for consult. Awaiting. * Wound care consultation appreciated from Yanelis (wound care nurse). * MRI obtained today ruled out osteomyelitis. #?Vasculitis Patient is a middle age female with unprovoked ulcers with no underlying chronic medical conditions otherwise. Her ESR is high at 52, CRP is 2.5 (high), UA is negative for protein, trace hemoglobin. All this raises the suspicion of possible vasculitis as well, while none of this is confirmatory though. Per the patient, she has been extensively investigated at [facility], medical records have not arrived here yet. Rheumatologic workup has thus been delayed pending records to avoid redundancy. Chemist Inorganic Dr Linden Quintanilla was contacted earlier today who suggested waiting for the medical records and if nothing is obtained, then would pursue workup accordingly. Will reassess tomorrow and contact Dr Quintanilla again. #Achilles tendon partial tear * Can be followed as an outpatient according to orthopedic surgeon (spoke on ) #Diet: Regular diet #DVT ppx: SQ Heparin #Code status: Full code Problem List: 1. Pyoderma gangrenosum 2. History of septic arthritis Pain Ratin Pain Location: feet/ankle Pain Goal: Pain 4 or less Pain Plan: prn Tomorrow's Labs & Rationales: CBC, BEP to follow for any infection RUTH JAIME MD 02/01/17 1142: Attending MD Review Statement Attending Statement Attending MD Statement: examined this patient, discuss w/resident/PA/JUNIOR ACCOUNT MANAGER, agreed w/resident/PA/JUNIOR ACCOUNT MANAGER, reviewed EMR data (avail), discussed with nursing, discussed with case mgmt, reviewed images, amended to note Attending Assessment/Plan: Patient seen and examined, feels the same. Still complains of pain at the site of the wounds. Patient had been seen by dermatology and they're recommending considering the steroids, obtaining some records from [facility]. The also recommended evaluation of some autoimmune diseases by rheumatology. Noted that patient's blood pressure has been running high. We'll add low-dose Norvasc at 2.5 mg. Surgical consult has been obtained for biopsy. Please obtain rheumatology consult and try to get some records from [facility] as well as [facility] day she was admitted last year in April. Local wound care and steroid therapy recommended by dermatology. Agree with switching prednisone to oral. Secondary to workup in progress, patient observation status has been converted to an inpatient status. DVT px; hep sq.
--- NOTE | 2017-02-01 09:31 | NUR ---
THIS RN DID FULL ADMISSION INSTEAD OF OBS INTAKE FORM, CORRECT TIME ADDED TO OBS INTAKE FORM. PT ARRIVED TO FLOOR AT 1534 ON 01/30/17.
[2017-02-01 15:48] VITALS: BP 122/68
--- NOTE | 2017-02-01 18:50 | Cons- General Surgery ---
General Information and HPI Consulting Request Date of Consult: 02/01/17 Requested By: OSCAR MCKEON M.D History of Present Illness: CC: Skin lesions requested biopsy HPI: 46-year-old nondiabetic smoker with a long history of skin infections and lesions in both of her hands and ankles are wrapped for open wounds that she cares for by herself she has multiple smaller ones on her legs and arms as well she says no one knows what this is caused by, 2 years ago she was at [facility] for similar treatment which required a wound VAC on her left thigh she is worried she might be developing a similar large wound on her left foot and she hasn't had a skin biopsy that she can recall and the managing team is requesting 1. With respect to these wounds they start small like mosquito bites then enlarge open up don't drain pus don't really get red they are tender and eventually with local care they heal but others form. She denies any family history of similar problems denies any period of time where none are active just the current episode is more severe and that's why she came to the hospital, she continues to smoke but denies any drug abuse, she cleans them with peroxide is not normally not on antibiotics Otherwise no changes bowel habits, weight or appetite. I've reviewed the [facility]. No history of GERD, PUD, bleeding problems, heart disease or issues with anesthesia. No family history of diabetes or cancer Allergies/Medications Allergies: Coded Allergies: aspirin (Intermediate, SWELLING 05/26/16) Home Med List: Amlodipine (Norvasc) 2.5 MG TABLET 2.5 MG PO DAILY HIGH BLOOD PRESSURE . Clobetasol Propionate (Temovate) 0.05 % OINT...G. 1 ALEXYS TOP BID WOUND CARE . Collagenase Clostridium Hist. (Santyl) 250 UNIT/GRAM OINT...G. 1 ALEXYS TOP BID WOUND CARE Hydromorphone HCl (Dilaudid) 2 MG TABLET 1 TAB PO Q6 PRN PAIN . Mupirocin 2 % OINT...G. 1 ALEXYS TOP BID WOUND CARE . Pantoprazole Sodium 20 MG TABLET.DR 1 TAB PO DAILY GI . Prednisone 10 MG TABLET 0 PO SEE ADMIN CRITERIA ANTI-INFLAMMATORY Prednisone 10 MG TABLET 0 PO SEE ADMIN CRITERIA ANTI-INFLAMMATORY . Current Medications: I reviewed Current Medications Sig/Diomedes Start time Last Medication Dose Route Stop Time Status Admin Acetaminophen 325 MG Q6P PRN 01/30 1445 AC PO Amlodipine Besylate 2.5 MG DAILY 02/01 1157 AC 02/01 PO 1324 Clobetasol Propionate 1 ALEXYS BID 02/01 1000 AC 02/01 TOP 0947 Heparin Sodium 5,000 UNIT Q8 01/30 2200 AC 02/01 (Porcine) SC 1324 Hydromorphone HCl 1 MG Q8P PRN 01/30 1500 AC 02/01 IV 1638 Methylprednisolone 40 MG DAILY 01/31 1000 DC 01/31 IV 0939 Mupirocin 1 ALEXYS BID 02/01 1000 AC 02/01 TOP 0947 Mupirocin 1 ALEXYS TID 01/30 2200 AC 02/01 TOP 1638 Oxycodone HCl 5 MG Q6 PRN 01/30 1900 AC 02/01 PO 1836 Prednisone 40 MG BID 02/01 1000 AC 02/01 PO / 2300 0946 Sodium Hypochlorite 1 ALEXYS DAILY 01/31 1134 AC 01/31 TOP 1813 Past History Medical History Neurological: NONE EENT: NONE Cardiovascular: NONE Respiratory: NONE Gastrointestinal: GERD Hepatic: NONE Renal: NONE Musculoskeletal: unknown joint disease, OSTEOMYELITIS Psychiatric: NONE Endocrine: NONE Blood Disorders: NONE Cancer(s): NONE 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 Home Smoking Status: Current Everyday Smoker Review of Systems Review of Systems: Constitutional: No fever, sweats or weight loss ENMT: No sore throat Cardiovascular: No chest pain, palpitations or leg swelling Respiratory: No shortness of breath, cough, or sputum or dyspnea on exertion GI: No GERD or bleeding per rectum : No dysuria or hematuria Musculoskeletal: No new muscle weakness, bone or joint pain Skin / Breast: No jaundice, rashes or itching Psychiatric: No history of drug or alcohol abuse no depression or anxiety Hematologic / lymphatic system: No problems with excessive bleeding, bruising, or blood clots Exam & Diagnostic Data Vital Signs and I&O I reviewed Vital Signs Date Time Temp Pulse Resp B/P B/P Pulse O2 O2 Flow FiO2 Mean Ox Delivery Rate 02/01 1548 98.0 81 20 122/68 96 02/01 1324 88 140/84 02/01 0701 97.9 74 16 164/90 96 Room Air 01/31 2201 98.5 84 18 142/78 96 I reviewed Intake & Output 02/01 1600 02/01 0800 02/01 0000 01/31 1600 01/31 0800 01/31 0000 Intake Total 500 50 260 720 250 350 Output Total Balance 500 50 260 720 250 350 Intake, IV 0 20 Intake, Oral 500 50 240 720 250 350 Number 0 Bowel Movements Patient 123 lb 124 lb Weight Physical Exam: Constitutional: pleasant, no acute distress, conversant Eyes: sclera anicteric ENMT: ears and nose atraumatic, moist mucous membranes, good dentition, no lip lesions Neck: Supple, trachea is midline, no cervical or supraclavicular adenopathy and no palpable thyromegaly Cardiovascular: S1, S2, no murmurs, no peripheral edema Respiratory: clear to auscultation with normal respiratory effort and no intercostal retractions GI: abdomen soft, nontender, nondistended, no palpable hepatosplenomegaly Extremities / lymphatics: symmetrically warm, free range of motion no peripheral edema, no cervical, supraclavicular, axillary, or inguinal adenopathy Musculoskeletal: Did not evaluate gait and station, no digital cyanosis, good muscle strength and tone no atrophy, motor grossly 5 out of 5 throughout Skin: no jaundice, no rashes warm, nondiaphoretic, no areas of erythema or induration However there are multiple skin lesions they are dry they some of them are necrotic and open with some granulation especially the one on her left foot there are innumerable there are some on her wrists which shows some healed pink granulation at the edges. Psychiatric: mood and affect are appropriate and alert and oriented to person place and time Last 24 Hours of Labs: I reviewed previous Assessment/Plan Assessment/Plan Studies MRIs of both ankles show some skin/SQ defects which correlated clinically with the wounds Impression is multiple skin lesions long history I was able to obtain the pathology of a biopsy from [facility] November 2014 This was a biopsy of the left leg showing skin with impetiginization ulcer abscess and necrosis. It is interesting there are no acute inflammatory changes but there is granulation and necrosis the left foot wound I feel may not reveal the intrinsic disease because of the amount of necrosis but on her wrists are more stable lesions see procedure note. I discussed with her the importance especially with the skin problem, of stopping smoking, as it affects healing especially. Procedure note under aseptic conditions at the bedside using local anesthetic we aimed a biopsy on a surgical sales representative wound on the dorsum of her right wrist we prepped it isolated the area and then injected a little over 1 mL of lidocaine showing a wheal then using a skin punch biopsy device, took 2 pieces from this pink abnormal edge of wound. The bleeding was minimal was covered with a sterile dressing patient had the procedure well and the specimen was sent to pathology. Problem List: 1. Chronic skin ulcer Consult Acknowledgment - Thank you for your consult request.
[2017-02-01 22:40] VITALS: BP 126/70
--- NOTE | 2017-02-02 06:26 | PN- Housestaff ---
PATRICIA ROJAS,EVA 02/02/17 0626: Subjective Follow-up For: Pyoderma Gangrenosum; Achilles tendon partial tear. Complaints: no complaints Subjective: I followed up and examined the patient today. She is resting comfortably in bed , not in distress, has no new complaints. Her wounds over legs are exposed, ready for dressing. Her vitals have remained stable, no overnight issues. Review of Systems Constitutional: Reports: no symptoms. Objective Last 24 Hrs of Vital Signs/I&O Vital Signs Date Time Temp Pulse Resp B/P B/P Pulse O2 O2 Flow FiO2 Mean Ox Delivery Rate 02/02 0909 70 130/80 02/02 0636 98.7 83 18 134/80 93 Room Air 02/01 2240 98.1 80 20 126/70 94 Room Air 02/01 1548 98.0 81 20 122/68 96 02/01 1324 88 140/84 Intake & Output 02/02 1600 02/02 0800 02/02 0000 Intake Total 100 100 Output Total Balance 100 100 Intake, Oral 100 100 Physical Exam General Appearance: Alert, Oriented X3, Cooperative, No Acute Distress Other Physical Findings: Skin two ulcers, both approx 8 x 10 cm over the ankle joint dorsum present, lesions in various stages of healing: multiple open wounds on bilateral upper extremities, multiple small open wounds on bilateral lower extremity, small open wound in periumbilical area HEENT Atraumatic, PERRLA, EOMI, Mucous Membr. moist/pink, aphthous ulcer on the left edge of the tongue Neck Supple, No JVD Lymphatic no cervical or axillary lymphadenopathy Cardiovascular Regular Rate, Normal S1, Normal S2, No Murmurs Lungs Clear to Auscultation, Normal Air Movement Abdomen Normal Bowel Sounds, Soft, No Tenderness, No Hepatospenomegaly, No Masses Neurological Normal Gait, grossly intact Extremities No Clubbing, No Cyanosis, No Edema, Normal Pulses, No Tenderness/ Swelling, skin changes as described above. Current Medications: Current Medications Sig/Diomedes Start time Last Medication Dose Route Stop Time Status Admin Acetaminophen 325 MG Q6P PRN 01/30 1445 AC PO Amlodipine Besylate 2.5 MG DAILY 02/01 1157 AC 02/02 PO 0909 Clobetasol Propionate 1 ALEXYS BID 02/01 1000 AC 02/02 TOP 0910 Heparin Sodium 5,000 UNIT Q8 01/30 2200 AC 02/02 (Porcine) SC 0623 Hydromorphone HCl 1 MG Q8P PRN 01/30 1500 AC 02/02 IV 1028 Melatonin 3 MG AT BEDTIME 02/02 220 UNVr PO Mupirocin 1 ALEXYS BID 02/01 1000 AC 02/02 TOP 0910 Oxycodone HCl 5 MG Q6 PRN 01/30 1900 AC 02/02 PO 0626 Prednisone 40 MG BID 02/01 1000 AC 02/02 PO 02/14 2300 0908 Sodium Hypochlorite 1 ALEXYS DAILY 01/31 1134 AC 02/02 TOP 0910 Last 24 Hrs of Lab/Jeramy Results Last 24 Hrs of Labs/Mics: Laboratory Tests 02/02/17 0640: Anion Gap 8, Estimated GFR > 60, BUN/Creatinine Ratio 24.3, CBC w Diff NO MAN DIFF REQ, RBC 4.84, MCV 85.5, MCH 28.1, RDW 13.6, MPV 7.9, Gran % 77.6 H, Lymphocytes % 16.9 L, Monocytes % 4.0, Eosinophils % 0.4, Basophils % 1.1, Absolute Granulocytes 12.3 H, Absolute Lymphocytes 2.7, Absolute Monocytes 0.6, Absolute Eosinophils 0.1, Absolute Basophils 0.2, PUBS MCHC 32.8 L Assessment/Plan Assessment: 46-year-old female with past medical history only significant for right knee septic arthritis, and chronic skin lesions is here for bilateral leg ulcers. She is currently being managed in the general medical floor for the following issues: # Pyoderma gangrenosum Diagnosis was presented by the patient, who has multiple wounds all over the body. * Dermatology consultation appreciated. * PO steroids changed from 40 mg PO BID to --> 40mg in AM, 20mg in PM, confirmed with Haircutter who suggested she should be able to be discharged after she gets a skin biopsy and her pain is under control. She will need to follow up with Dermatology service in a week's time. * Continue 2% mupirocin and clobetasol ointment over the lesions * Wound care consultation appreciated from Yanelis (wound care nurse). * MRI obtained today ruled out osteomyelitis. #?Vasculitis Patient is a middle age female with unprovoked ulcers with no underlying chronic medical conditions otherwise. Her ESR is high at 52, CRP is 2.5 (high), UA is negative for protein, trace hemoglobin. All this raises the suspicion of possible vasculitis as well, while none of this is confirmatory though. * Per the patient, she has been extensively investigated at [facility] and [facility]. I reviewed the medical records from [place] today as follows: p-ANCA positive >1:160, positive cryoglobin (cryocrit <1%), elevated globulin, negative CCP, negative RF, negative MIGUEL, quantiferon Gold for TB negative. All these tests were done on 11/13/14. * She had undergone left knee aspiration by Conveyor Feeder Dr Britt Uriarte on 01/31/15 which did not show a picture of septic arthritis (RBC 2400, WBC 1425 with gran 69%, lymphocyte 14%, tissue cell 15%, eosinophil 1% and basophil 1%). * Dermatology service (Resident Dr Raciel Short) had reviewed her case on 11/02 who suggested that the biopsy was not clear about the diagnosis for pyoderma gangrenosum, and that it would be a diagnosis fo exclusion. he had ordered SPEP JERARDO, MIGUEL, Antiphospholipid antibody, ANCA, VDRL the results of which are not in the system. He writes that pyoderma gangrenosum could be a possibility, as well as vasculitis (unspecified), or cocaine skin popping with Levamizole mixture. * She is HIV, HBV, and HCV negative as of 11/13/14. * Toxicology at that admission on 11/13/14 was positive for cocaine, cannabis, opiates, benzodiazepine. * Biopsy of the wound failed to give a diagnosis of pyoderma gangrenosum, but did show chronic impetiginization. * Conveyor Feeder Dr Linden Quintanilla requested for consult. I sopke with him, who will review the records and assess the patient. #Achilles tendon partial tear * Can be followed as an outpatient according to orthopedic surgeon (spoke on ) #Diet: Regular diet #DVT ppx: SQ Heparin #Code status: Full code Problem List: 1. Pyoderma gangrenosum 2. History of septic arthritis Pain Ratin Pain Location: feet Pain Goal: Pain 4 or less Pain Plan: prn Tomorrow's Labs & Rationales: - RUTH JAIME MD 02/02/17 1241: Attending MD Review Statement Attending Statement Attending MD Statement: examined this patient, discuss w/resident/PA/WATCH ENGINEER, agreed w/resident/PA/WATCH ENGINEER, reviewed EMR data (avail), discussed with nursing, discussed with case mgmt, reviewed images, amended to note Attending Assessment/Plan: Patient seen and examined, feels okay just a bit nervous about the procedure. She scheduled for skin biopsy today. Blood pressure better controlled after institution of amlodipine. Skin lesions looked same. Laboratory Tests 02/02 0640 Chemistry Sodium (137 - 145 mmol/L) 137 Potassium (3.5 - 5.1 mmol/L) 4.7 Chloride (98 - 107 mmol/L) 102 Carbon Dioxide (22 - 30 mmol/L) 27 Anion Gap (5 - 16) 8 BUN (7 - 17 mg/dL) 17 Creatinine (0.5 - 1.0 mg/dL) 0.7 Estimated GFR (>60 ml/min) > 60 BUN/Creatinine Ratio (7 - 25 %) 24.3 Hematology CBC w Diff NO MAN DIFF REQ WBC (4.8 - 10.8 /CUMM) 15.8 H RBC (4.20 - 5.40 /CUMM) 4.84 Hgb (12.0 - 16.0 G/DL) 13.6 Hct (37 - 47 %) 41.4 MCV (81.0 - 99.0 FL) 85.5 MCH (27.0 - 31.0 PG) 28.1 RDW (11.5 - 14.5 %) 13.6 Plt Count (130 - 400 /CUMM) 425 H MPV (7.4 - 10.4 FL) 7.9 Gran % (42.2 - 75.2 %) 77.6 H Lymphocytes % (20.5 - 51.1 %) 16.9 L Monocytes % (1.7 - 9.3 %) 4.0 Eosinophils % (0 - 5 %) 0.4 Basophils % (0.0 - 2.0 %) 1.1 Absolute Granulocytes (1.4 - 6.5 /CUMM) 12.3 H Absolute Lymphocytes (1.2 - 3.4 /CUMM) 2.7 Absolute Monocytes (0.10 - 0.60 /CUMM) 0.6 Absolute Eosinophils (0.0 - 0.7 /CUMM) 0.1 Absolute Basophils (0.0 - 0.2 /CUMM) 0.2 PUBS MCHC (33.0 - 37.0 G/DL) 32.8 L A/P; 46-year-old female with questionable history off pyoderma gangrenosum although it was never biopsy-proven, history of septic arthritis last year who is admitted with nonhealing wound on bilateral feet. There is a high suspicion for pyoderma gangrenosum in this patient. Initially treated with IV steroids and now switched to oral. Patient scheduled for skin biopsy today. We'll follow-up on the biopsy results. Rheumatology consult is pending. Records from [facility] is pending. At this point would recommend starting gradual prednisone taper. Start at 40 mg in the morning and 20 mg in the evening. Please call dermatology and asked them about suggested taper. DVT px; Hep sq. Please switch dilaudid to 4 mg PO q 8 hours prn. possible DC tomorrow with further work up/follow up as outpatient pending rheum eval.
[2017-02-02 06:36] VITALS: BP 134/80
[2017-02-02 08:08] LABS: ABSOLUTE BASOPHIL COUNT 0.2 /CUMM (0.0-0.2); ABSOLUTE EOSINOPHIL COUNT 0.1 /CUMM (0.0-0.7); ABSOLUTE GRANULOCYTE CT 12.3 /CUMM (1.4-6.5); ABSOLUTE LYMPH COUNT 2.7 /CUMM (1.2-3.4); ABSOLUTE MONOCYTE COUNT 0.6 /CUMM (0.10-0.60); BASOPHIL % 1.1 % (0.0-2.0); EOSINOPHIL % 0.4 % (0-5); GRANULOCYTE % 77.6 % (42.2-75.2); HEMATOCRIT 41.4 % (37-47); MEAN CORPUSCULAR HGB 28.1 PG (27.0-31.0); MEAN CORPUSCULAR HGB CONC 32.8 G/DL (33.0-37.0); MEAN CORPUSCULAR VOLUME 85.5 FL (81.0-99.0); MEAN PLATELET VOLUME 7.9 FL (7.4-10.4); PLATELET COUNT 425 /CUMM (130-400); RBC DISTRIBUTION WIDTH 13.6 % (11.5-14.5); RED BLOOD CELL CT 4.84 /CUMM (4.20-5.40); WHITE BLOOD CELL COUNT 15.8 /CUMM (4.8-10.8)
[2017-02-02 14:47] VITALS: BP 132/74
[2017-02-02 14:51] VITALS: BP 140/85
[2017-02-02] MEDS ORDERED: MUPIROCIN22 GM TOP (18:47)
[2017-02-02] MEDS ORDERED: TEMOVATE15 GM TOP (18:47)
[2017-02-02] MEDS ORDERED: NORVASC2.5 M1 PO (18:47)
[2017-02-02] MEDS ORDERED: PANTOPRAZOLE SO20 M1 PO (18:47)
[2017-02-02] MEDS ORDERED: PREDNISONE10 M2 PO (18:47)
--- NOTE | 2017-02-02 18:53 | Patient Discharge Instructions ---
Discharge Instructions General Discharge Information You were seen/treated for: Chronic skin ulcers, likely pyoderma gangrenosum You had these procedures: Skin biopsy Other wound care: As instructed. Please use mupirocin and clobetasol ointment over the wound. Santyl with xerofoam dressing daily. Special Instructions: Please visit Dr. Saroj Almeida (route sales associate) within 1 week of discharge. Discuss the skin biopsy result with him. Please follow up with wound care center at [facility] after discharge. . Please visit your primary care physician (Dr Shakira Alas) within 7-10 days of discharge. Please visit Dr Nuha Green (Orthopedic surgeon) in two weeks of discharge for partial Achilles tendon tear. Please follow up with Dr Khurram Quintanilla (Atomic Process Engineer) in seven days of discharge. Please return to emergency if symptoms worsen. Diet Continue normal diet: Yes Recommended Diet: Heart Healthy Activity Full Activity/No Limits: No Activity Self Limited: Yes Acute Coronary Syndrome Inclusion Criteria At DC or during hospital stay patient has or had the following: ACS DIAGNOSIS No Discharge Core Measures Meds if any: Prescribed or Continued at Discharge Meds if any: NOT Prescribed or Continued at Discharge Congestive Heart Failure Inclusion Criteria At DC or during hospital stay patient has or had the following: CHF DIAGNOSIS No Discharge Core Measures Meds if any: Prescribed or Continued at Discharge Meds if any: NOT Prescribed or Continued at Discharge Cerebrovascular accident Inclusion Criteria At DC or during hospital stay patient has or had the following: CVA/TIA Diagnosis No Discharge Core Measures Meds if any: Prescribed or Continued at Discharge Meds if any: NOT Prescribed or Continued at Discharge Venous thromboembolism Inclusion Criteria VTE Diagnosis No VTE Type NONE VTE Confirmed by (Test) NONE Discharge Core Measures - Per Current guidelines, there needs to be overlap - treatment for the first 5 days of Warfarin therapy. - If discharged on Warfarin prior to 5 days of - overlap therapy, the patient will need to be - assessed for post discharge needs including - *Post discharge parental anticoagulation - *Warfarin and/or parental anticoagulation education - *Follow up date to check INR post discharge At least 5 days overlap therapy as Inpatient No Meds if any: Prescribed or Continued at Discharge Note: Overlap Therapy is Warfarin and Anticoagulant Meds if any: NOT Prescribed or Continued at Discharge
[2017-02-02 23:14] VITALS: BP 152/80
--- NOTE | 2017-02-02 23:49 | NUR ---
PT C/O HEART BURN AND ASKED FOR TUMS TO BE ORDERED. PRIVATE MORTGAGE BANKER SAFE SIMA SHIN REQUESTED TO PLACE THE ORDER.
[2017-02-03 06:23] VITALS: BP 136/86
--- NOTE | 2017-02-03 07:26 | PN- Housestaff ---
PATRICIA ROJAS,EVA 02/03/17 0726: Subjective Follow-up For: Pyoderma Gangrenosum; Achilles tendon partial tear. Complaints: no complaints Subjective: I followed up and examined the patient today. She is resting comfortably in bed , not in distress, has no new complaints. She got the skin biopsy yesterday. Her vitals have remained stable, no overnight issues. She is waiting for Respiratory Therapy Manager consultation today. The wound is not foul smelling anymore per the patient. Review of Systems Constitutional: Reports: no symptoms. Objective Last 24 Hrs of Vital Signs/I&O Vital Signs Date Time Temp Pulse Resp B/P B/P Pulse O2 O2 Flow FiO2 Mean Ox Delivery Rate 02/03 1435 97.9 96 18 110/68 95 Room Air 02/03 0940 90 148/88 02/03 0623 97.9 96 16 136/86 98 Room Air 02/02 2314 98.1 85 20 152/80 96 Room Air 02/02 1451 97.9 95 20 140/85 94 02/02 1447 98.4 95 20 132/74 97 Intake & Output 02/03 1600 02/03 0800 02/03 0000 Intake Total 100 480 Output Total Balance 100 480 Intake, Oral 100 480 Physical Exam General Appearance: Alert, Oriented X3, Cooperative, No Acute Distress Other Physical Findings: Skin two ulcers, both approx 8 x 10 cm over the ankle joint dorsum present, lesions in various stages of healing: multiple open wounds on bilateral upper extremities, multiple small open wounds on bilateral lower extremity, small open wound in periumbilical area. The wound is not foul smelling anymore. HEENT Atraumatic, PERRLA, EOMI, Mucous Membr. moist/pink, aphthous ulcer on the left edge of the tongue Neck Supple, No JVD Lymphatic no cervical or axillary lymphadenopathy Cardiovascular Regular Rate, Normal S1, Normal S2, No Murmurs Lungs Clear to Auscultation, Normal Air Movement Abdomen Normal Bowel Sounds, Soft, No Tenderness, No Hepatospenomegaly, No Masses Neurological Normal Gait, grossly intact Extremities No Clubbing, No Cyanosis, No Edema, Normal Pulses, No Tenderness/ Swelling, skin changes as described above. NO CHANGE FROM YESTERDAY Current Medications: Current Medications Sig/Diomedes Start time Last Medication Dose Route Stop Time Status Admin Acetaminophen 325 MG Q6P PRN 01/30 1445 AC PO Amlodipine Besylate 2.5 MG DAILY 02/01 1157 AC 02/03 PO 0940 Calcium Carbonate 500 MG DAILY 02/03 1000 DC PO Calcium Carbonate 500 MG DAILY NEEDED PRN 02/03 0000 AC 02/03 PO 0006 Calcium Carbonate 500 MG ONCE ONE 02/02 1630 DC 02/02 PO 02/02 1631 1627 Clobetasol Propionate 1 ALEXYS BID 02/01 1000 AC 02/03 TOP 0940 Collagenase 1 ALEXYS BID 02/03 1000 AC 02/03 TOP 1049 Heparin Sodium 5,000 UNIT Q8 01/30 2200 AC 02/03 (Porcine) SC 1413 Hydromorphone HCl 1 MG ONCE ONE 02/03 0930 DC 02/03 IV 02/03 0931 0939 Hydromorphone HCl 4 MG Q8P PRN 02/02 1430 AC 02/02 PO 2347 Melatonin 3 MG AT BEDTIME 02/02 2200 AC 02/02 PO 2200 Morphine Sulfate 2 MG ONCE ONE 02/02 1800 DC 02/02 IV 02/02 1801 1806 Mupirocin 1 ALEXYS BID 02/01 1000 AC 02/03 TOP 0940 Omeprazole 20 MG DAILY AC 02/02 1847 AC 02/03 PO 0624 Oxycodone HCl 5 MG Q6 PRN 01/30 1900 AC 02/03 PO 1250 Prednisone 40 MG DAILY 02/03 1000 AC 02/03 PO 0939 Prednisone 20 MG 2000 02/02 2000 AC 02/02 PO 2053 Sodium Hypochlorite 1 ALEXYS DAILY 01/31 1134 DC 02/02 TOP 0910 Last 24 Hrs of Lab/Jeramy Results Last 24 Hrs of Labs/Mics: Laboratory Tests 02/03/17 1050: ANCA Pending Assessment/Plan Assessment: 46-year-old female with past medical history only significant for right knee septic arthritis, and chronic skin lesions is here for bilateral leg ulcers. She is currently being managed in the general medical floor for the following issues: # Pyoderma gangrenosum Diagnosis was presented by the patient, who has multiple wounds all over the body. * Dermatology consultation appreciated. * Continue PO steroids 40mg in AM, 20mg in PM * Continue 2% mupirocin and clobetasol ointment over the lesions * Wound care consultation appreciated from Dr Farah who suggested changing from Dakin solution to Santyl with Xerofoam from today onwards. * Awaiting skin biopsy results, which can be done as an optpatient basis. * She will need to follow up with Dermatology service in a week's time. * MRI obtained today ruled out osteomyelitis. * Patient will be following up with specialty therapist Dr. Saroj Almeida, and wound care center of [facility]. #?Vasculitis Patient is a middle age female with unprovoked ulcers with no underlying chronic medical conditions otherwise. Her ESR is high at 52, CRP is 2.5 (high), UA is negative for protein, trace hemoglobin. All this raises the suspicion of possible vasculitis as well, while none of this is confirmatory though. [facility] records as mentioned in yesterday's note. Dr Linden Quintanilla consulted. Appreciate the input. Will follow. Will follow ANCA results (currently pending). She will follow up with pump tender Linden Quintanilla MD within a week's time. #Achilles tendon partial tear * Can be followed as an outpatient according to orthopedic surgeon (spoke on ). * Referral has been made for orthopedic surgeon Fredi Green MD #A referral has been placed for a new primary care physician Shakira Alas MD. #Diet: Regular diet #DVT ppx: SQ Heparin #Code status: Full code Problem List: 1. Pyoderma gangrenosum 2. Vasculitis 3. Partial Achilles tendon tear 4. History of septic arthritis Pain Ratin Pain Location: feet Pain Goal: Pain 4 or less Pain Plan: prn Tomorrow's Labs & Rationales: - ADDISON ROJAS,[facility] 02/03/17 1326: Attending MD Review Statement Attending Statement Attending MD Statement: examined this patient, discuss w/resident/PA/PETROLEUM PLANT OPERATOR, agreed w/resident/PA/PETROLEUM PLANT OPERATOR, discussed with family, reviewed EMR data (avail), discussed with nursing, discussed with case mgmt, reviewed images, amended to note Attending Assessment/Plan: Patient seen and examined, feels okay. Pain medicine helps the pain. Patient had been seen by wound care and Dr. Tracey had recommended switching to Santyl dressing. Vital signs are stable and blood pressure improved with Norvasc. Patient seen by rheumatology and Dr. Quintanilla had recommended repeating patient's ANCA levels. If beANCA levels, out positive then patient will require anti- myeloperoxidase antibody testing. Patient wanted to know if her wounds could be surgically debrided. I have checked with the Alex Hu MD as well as Dr. Tracey. They do not recommend surgical debridement until unless diagnosis is made. Patient can be discharged on a few please supply of Dilaudid because that seemed to help. She was counseled on taking stool softeners as well as fiber while on narcotics. Patient to follow-up with the wound care, dermatology, rheumatology, primary care doctor as an outpatient.
--- NOTE | 2017-02-03 09:00 | Cons- Rheumatology ---
General Information and HPI Consulting Request Date of Consult: 02/03/17 Requested By: OSCAR MCKEON M.D Reason for Consult: evaluate fpr possible vasculitis Source of Information: patient, old records Exam Limitations: no limitations History of Present Illness: This is a 46-year-old female was admitted to the hospital on January 30 with multiple painful skin lesions. He first began having problems over 2 years ago and was admitted and diagnosed at [facility] with pyoderma gangrenosa. She was initially treated with steroids but apparently lost to follow-up. I'm asked to see her currently to rule out the possibility of an associated vasculitis. It should be noted that he had she has been seen at [facility] by the rheumatology subsection she was never diagnosed with any inflammatory arthropathy although she did present with a knee effusion nearly 2 years ago. She recalls being told this was a septic arthritis and was sent home with a PICC line and antibiotics. Apparently she's had another episode of that within a few months that was supposedly not septic. Denies chronic inflammatory joint symptoms. Her workup in the past revealed negative hepatitis B and negative H HIV negative MIGUEL back in 2012. She did have positive urine toxicology back in 2014 for cocaine and admits that she did use cocaine at that time. Currently however she absolutely denies use of this substance. Dr. Juan Pablo hartman dermatology provider contracting consultant wisely pointed out that patients who use cocaine can get a cutaneous vasculitis because of the levamisole in cocaine. A skin biopsy has been recently obtained which will hopefully confirm pyoderma gangrenosum and not a vasculitis. In 2014 she had a positive ANCA with the description of a p-ANCA, not c-ANCA. Allergies/Medications Allergies: Coded Allergies: aspirin (Intermediate, SWELLING 05/26/16) Home Med List: Amlodipine (Norvasc) 2.5 MG TABLET 2.5 MG PO DAILY HIGH BLOOD PRESSURE Clobetasol Propionate (Temovate) 0.05 % OINT...G. 1 ALEXYS TOP BID WOUND CARE Mupirocin 2 % OINT...G. 1 ALEXYS TOP BID WOUND CARE Pantoprazole Sodium 20 MG TABLET.DR 1 TAB PO DAILY GI Prednisone 10 MG TABLET 0 PO SEE ADMIN CRITERIA ANTI-INFLAMMATORY Current Medications: Current Medications Sig/Diomedes Start time Last Medication Dose Route Stop Time Status Admin Acetaminophen 325 MG Q6P PRN 01/30 1445 AC PO Amlodipine Besylate 2.5 MG DAILY 02/01 1157 AC 02/02 PO 0909 Calcium Carbonate 500 MG DAILY 02/03 1000 DC PO Calcium Carbonate 500 MG DAILY NEEDED PRN 02/03 0000 AC 02/03 PO 0006 Calcium Carbonate 500 MG ONCE ONE 02/02 1630 DC 02/02 PO 02/02 1631 1627 Clobetasol Propionate 1 ALEXYS BID 02/01 1000 AC 02/02 TOP 2200 Collagenase 1 ALEXYS BID 02/03 1000 AC TOP Heparin Sodium 5,000 UNIT Q8 01/30 2200 AC 02/03 (Porcine) SC 0624 Hydromorphone HCl 4 MG Q8P PRN 02/02 1430 AC 02/02 PO 2347 Hydromorphone HCl 1 MG Q8P PRN 01/30 1500 DC 02/02 IV 1028 Melatonin 3 MG AT BEDTIME 02/02 2200 AC 02/02 PO 2200 Morphine Sulfate 2 MG ONCE ONE 02/02 1800 DC 02/02 IV 02/02 1801 1806 Mupirocin 1 ALEXYS BID 02/01 1000 AC 02/02 TOP 2200 Mupirocin 1 ALEXYS TID 01/30 2200 DC 02/02 TOP 0910 Omeprazole 20 MG DAILY AC 02/02 1847 AC 02/03 PO 0624 Oxycodone HCl 5 MG Q6 PRN 01/30 1900 AC 02/03 PO 0349 Prednisone 40 MG DAILY 02/03 1000 AC PO Prednisone 20 MG 2000 02/02 2000 AC 02/02 PO 2053 Prednisone 40 MG BID 02/01 1000 DC 02/02 PO 02/14 2300 0908 Sodium Hypochlorite 1 ALEXYS DAILY 01/31 1134 DC 02/02 TOP 0910 Review of Systems Review of Systems: She denies fevers chills Raynaud's phenomenon pleuritic chest pain or alopecia. His no history of phlebitis or pulmonary emboli. 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 Home Smoking Status: Current Everyday Smoker Exam & Diagnostic Data Vital Signs and I&O Vital Signs Date Time Temp Pulse Resp B/P B/P Pulse O2 O2 Flow FiO2 Mean Ox Delivery Rate 02/03 0623 97.9 96 16 136/86 98 Room Air 02/02 2314 98.1 85 20 152/80 96 Room Air 02/02 1451 97.9 95 20 140/85 94 02/02 1447 98.4 95 20 132/74 97 02/02 0909 70 130/80 Intake & Output 02/03 1600 02/03 0800 02/03 0000 Intake Total 100 480 Output Total Balance 100 480 Intake, Oral 100 480 Physical Exam: On examination she's a thin but somewhat healthy-appearing young female with multiple lesions on her extremities that are wrapped with gauze. She does have a necrotic-appearing lesion on her right fourth PIP joint. Other lesions look somewhat raised but ulcerated. As her joints are concerned she has no signs of synovial hypertrophy of any of her hand or wrist joints. He has good range of motion of all her joints including the right knee which as stated previously had an inflammatory arthritis Assessment/Plan Assessment: Overall I agree this appears to be pyoderma gangrenosum without any associated rheumatoid disease such as rheumatoid arthritis lupus or even a vasculitis. She has been begun on prednisone which is appropriate treatment as per dermatology recommendations Recommendations: I will review the documents from [facility] in more detail. For now I would repeat an ANCA to see if it is still positive. The p-ANCA if positive should be followed up by an anti-myeloperoxidase antibody this is seen in microscopic poly- angiitis. Even know she denies cocaine use I do believe a urine tox screen is indicated to rule out levamisole-induced vasculitis. The treatment for this is simple avoidance of cocaine. However I tend to believe the patient that she is currently not using. Believe she needs regular follow-up with dermatology. She does not appear to have inflammatory bowel disease which is also often associated with pyoderma gangrenosa Consult Acknowledgment - Thank you for your consult request.
[2017-02-03] MEDS ORDERED: DILAUDID2 M1 PO ×2 (11:28→13:27)
[2017-02-03] MEDS ORDERED: PREDNISONE10 M2 PO (13:27)
[2017-02-03] MEDS ORDERED: PANTOPRAZOLE SO20 M1 PO (13:27)
[2017-02-03] MEDS ORDERED: TEMOVATE15 GM TOP (13:27)
[2017-02-03] MEDS ORDERED: MUPIROCIN22 GM TOP (13:27)
[2017-02-03] MEDS ORDERED: SANTYL30 GM TOP (13:27)
[2017-02-03] MEDS ORDERED: NORVASC2.5 M1 PO (13:27)
[2017-02-03 14:35] VITALS: BP 110/68
--- NOTE | 2017-02-03 15:10 | PN- General Surgery ---
Surgical Brief Attending Note Brief Attending Note: Discussed with residents, biopsy results will take several days her wounds are chronic I would manage them nonoperatively, they are not acutely infected.
--- NOTE | 2017-02-03 18:41 | Discharge Summary ---
Visit Information Visit Dates Admission Date: 02/01/17 Discharge Date: 02/03/17 Hospital Course Course Attending Physician: RUTH JAIME MD Primary Care Physician: PATIENT HAS NO PRIMARY CARE DR: REFERED TO DR. JELANI JENKINS MD ([facility]) Allergies: Coded Allergies: aspirin (Intermediate, SWELLING 05/26/16) Disposition Summary Disposition Discharge Disposition: home or self care Discharge Instructions General Discharge Information Code Status: Full Code Medications at Discharge Discharge Medications: Continue taking these medications: Prednisone (Prednisone) 10 MG TABLET 0 ORAL SEE INSTRUCTIONS Qty = 21 Instructions: . Comments: TAKE 2 TABS AT 1000, AND 1 TAB AT 2000 FOR 7 DAYS, VISIT GRAVEDIGGER BEFORE THAT. Last Taken:02/03/17 Time:9:40 AM This prescription has been renewed Start taking the following new medications: Amlodipine (Norvasc) 2.5 MG TABLET 2.5 Milligram ORAL DAILY Qty = 30 No Refills Instructions: . Comments: Last Taken:02/03/17 Time:9:40 AM Hydromorphone HCl (Dilaudid) 2 MG TABLET 1 Tablet ORAL EVERY SIX HOURS as needed for PAIN Qty = 10 No Refills Instructions: . Comments: Last Taken:02/03/17 Time:9:40 AM Pantoprazole Sodium (Pantoprazole Sodium) 20 MG TABLET.DR 1 Tablet ORAL DAILY Qty = 30 No Refills Instructions: . Mupirocin (Mupirocin) 2 % OINT...G. 1 Application On the skin TWICE DAILY Qty = 60 Refills = 1 Instructions: . Comments: Last Taken:02/03/17 Time:6:30 AM Clobetasol Propionate (Temovate) 0.05 % OINT...G. 1 Application On the skin TWICE DAILY Qty = 60 Refills = 1 Instructions: . Comments: Last Taken:02/03/17 Time:10 AM Collagenase Clostridium Hist. (Santyl) 250 UNIT/GRAM OINT...G. 1 Application On the skin TWICE DAILY Qty = 60 No Refills Comments: Last Taken:02/03/17 Time:10 AM Prednisone (Prednisone) 10 MG TABLET 0 ORAL SEE INSTRUCTIONS Qty = 21 No Refills Comments: TAKE 2 TABS AT 1000, AND 1 TAB AT 2000 FOR 7 DAYS, VISIT GRAVEDIGGER BEFORE THAT. Copies To: JOSUE ROJAS,IRINA VALDEZ MD,ANGIE; KARIN ROJAS,LOVE Breen; ALICE ROJAS,JELANI
== END 2017-02-03 17:00 | DRG 383 ==
LOC: ERH 04:13 → ERHI 04:17 → ERH 13:36 → ERHI 13:36 → 2NA 13:36 → ENRESERV 14:24 → ENTRNSPT 15:04 → 2NA 15:15 → ERHI 15:15 → CMPTRNSPT 15:30 → 2NA 02-01 09:26 → ENPENDDIS 02-03 13:39 → 2NA 02-03 17:00
PROVIDERS: Emergency Medicine; Student in an Organized Health Care Education/Training Program; ADMIT Hospitalist
PROC: 0HBDXZX Excision of Right Lower Arm Skin, External Approach, Diagnostic (ICD-10-PCS; principal; 2017-02-01)
DX: L88 Pyoderma gangrenosum (principal); F17.200 Nicotine dependence, unspecified, uncomplicated; K21.9 Gastro-esophageal reflux disease without esophagitis; S86.019A Strain of unspecified Achilles tendon, initial encounter; X58.XXXA Exposure to other specified factors, initial encounter; Y92.9 Unspecified place or not applicable
CPT/HCPCS: 2NASP; 75618; 73630-LT; 81001; 82436; 87040; 87086; 96361; 96365; 96375; 96376; J1170; J1644; J1885; J2405; J2920; J2930

== ENCOUNTER 2017-09-19 19:39 | Emergency (ER) | payer OTHER ==
[~2017-09-19] VITALS: Ht 165.1 cm; Wt 56.7 kg
[~2017-09-19 19:39] MED LIST changes: +DILAUDID2 M1 PO; +MUPIROCIN22 GM TOP; +NORVASC2.5 M1 PO; +PANTOPRAZOLE SO20 M1 PO; +PREDNISONE10 M2 PO; +SANTYL30 GM TOP; +TEMOVATE15 GM TOP
[2017-09-19 19:48] VITALS: BP 94/58
== END 2017-09-19 22:05 | disposition admitted as inpatient to this hospital (09) ==
LOC: ERH 19:39
DX: K65.1 Peritoneal abscess (principal)